=== PATIENT | male | born 1995 | race Caucasian/White ===

== ENCOUNTER 2017-12-23 22:55 | Emergency (ER) | payer SELFPAY ==
[2017-12-23 22:57] VITALS: BP 130/82; PULSE 78; RESP 12; TEMP 37.2; O2SAT 96; BMI 21.5
--- NOTE | 2017-12-23 23:09 | XR_ITS ---
XR hand RT min 3V Ordering Physician: Beck Perales MD Patient Age: 22 years: Male HISTORY: ITS.REASON: pain Right hand pain. Third metacarpal. Previous fracture fifth metacarpal. TECHNIQUE: 3 views right hand. COMPARISON : FINDINGS No acute fracture or findings. Specifically the third metacarpal and third finger, injured right appear intact. Mild deformity at the distal fifth metacarpal reflect old healed fracture here.. Note minor flaring and possibly early degenerative fourth MCP joint Remainder of the fingers and metacarpals carpals visualized unremarkable IMPRESSION: No acute fracture or findings at the right hand. Attention directed towards the third metacarpal and third finger. Unremarkable. Mild Deformity at the fifth metacarpal from old healed fracture noted.
--- NOTE | 2017-12-23 23:12 | HMH.EDEXTP ---
ED Disposition Clinical Impression: Contusion of right hand Qualifiers: Encounter type: initial encounter Qualified Code(s): S60.221A - Contusion of right hand, initial encounter Disposition: Home, Self-Care Condition on Discharge: Good Instructions: DI for Contusion Additional Instructions: Please follow up with one of the orthopedic surgeons listed below, if not better within the next 2-3 days. Referrals: Marcio Valle MD [Staff Physician] - Alexi Masterson MD [Staff Physician] - Time of Disposition: 23:50 - Critical Care Critical Care Time: No Attestation: On 12/23/17, the high probability of a clinically significant, sudden or life threatening deterioration of the following system(s) required my full and direct attention, intervention and personal management. The time I documented below is in addition to time spent performing reported procedures but includes the following listed in this critical care notation. Medical Decision Making - Medical Records Medical records reviewed: Yes: I reviewed the patient's medical records. Vital Signs: 12/23/17 22:57 12/23/17 23:59 Temperature 99.0 F 98.6 F Temperature Source Oral Oral Pulse Rate 72 Pulse Rate [Left Radial] 78 Respiratory Rate 12 16 Blood Pressure 127/81 Blood Pressure [Left Arm] 130/82 Blood Pressure Mean [Left Arm] 98 Blood Pressure Source Automatic Cuff Blood Pressure Source [Left Arm] Automatic Cuff Blood Pressure Position Supine Blood Pressure Position [Left Arm] Sitting 02 Sat by Pulse Oximetry 96 Oxygen Delivery Method Room Air Room Air - Lab Data Lab results reviewed: Yes: I reviewed the patient's lab results. - Radiology Data #1 Image(s): Hand (right ) Image Reviewed: Yes I reviewed the patient's radiology results, Yes I reviewed the patient's radiology image Preliminary Findings: Normal/NAD - Tab Inquiry Pt receiving controlled substance: No - Reevaluation(s) Time: 23:15 Reevaluation #1: medically stable, in no acute distress Extremity Problem HPI - General Chief complaint: Extremity Injury, Upper Stated complaint: AO 12/22/17 Right hand pain Mode of Arrival: Ambulatory Source of Information: Patient Limitations: No Limitations Description of Symptoms (Recalled from ER Triage Doc. by RN): right hand pain, unknown injury, due to etoh - History of Present Illness Complaint: extremity pain (right hand ) Onset (ago): hour(s) (2) Consistency: constant Location: right Severity scale (1-10): 4 Radiation: none Relieving factors: cold therapy, immobilization, elevation, medication (Motrin/Tylennnol) Exacerbating factors: range of motion - Related Data Home Medications Medication Instructions Recorded Confirmed No Known Home Medications [No 12/23/17 12/23/17 Known Home Medications] Allergies Allergy/AdvReac Type Severity Reaction Status Date / Time diphenhydramine Allergy Unknown HYPER Verified 12/23/17 23:08 [From BENADRYL] lorazepam [From ATIVAN] Allergy Unknown HYPER Verified 12/23/17 23:08 [facility] History I have reviewed the patient's past medical history: Yes Amputation: No Fractures: No - Social History Educational Level: Completed High School Alcohol Intake: never Substance Use Type: denies use ROS Obtained: Yes All systems reviewed & no additional complaints - Musculoskeletal Musculoskeletal: Reports joint pain (right hand pain) Physical Exam - General General appearance: alert, in no apparent distress - Neck Neck exam: Present: normal inspection, full ROM, trachea midline. Absent: meningismus, lymphadenopathy - Chest Chest inspection: Present: normal inspection, symmetric chest wall rise. Absent: tenderness - Respiratory Respiratory exam: Present: normal lung sounds bilaterally. Absent: respiratory distress - Cardiovascular Cardiovascular exam: Present: regular rate, normal rhythm. Absent: JVD - Abdominal Exam Abdominal exam: Pres
[2017-12-23 23:59] VITALS: BP 127/81; PULSE 72; RESP 16; TEMP 37; O2SAT 99
== END 2017-12-24 00:06 | disposition home or self-care (01) ==
PROVIDERS: Emergency Provider Emergency Medicine; Family Provider Nurse Practitioner Family
DX: S60.221A Contusion of right hand, initial encounter (principal); F10.10 Alcohol abuse, uncomplicated; F17.210 Nicotine dependence, cigarettes, uncomplicated; Z88.8 Allergy status to other drugs, medicaments and biological substances
CPT/HCPCS: 73130; 99282

== ENCOUNTER 2020-08-03 12:24 | Emergency (ER) | payer MEDICAID, SELFPAY ==
[2020-08-03 13:33] VITALS: BP 123/98; PULSE 64; RESP 20; TEMP 37.1; O2SAT 98; BMI 28.7
--- NOTE | 2020-08-03 13:41 | HMH.EDUTC ---
[facility] [place] Clinical Impression: Encounter for laboratory testing for COVID-19 virus Disposition: Home, Self-Care Condition on Discharge: Good Instructions: Preventing the Spread of Coronavirus Discharge Instructions Additional Instructions: You was tested for today for COVID19 your test result should be back tomorrow or , you may call back in the evening tomorrow or evening to see if your test results are back and the result You was given a handout with instructions for Self Quarantine and Self isolation for while you wait on test results and what to do if they are positive Return if needed No work until negative COVID test Referrals: PCP,No [Primary Care Provider] - As needed Forms: Work/School Release Medical Decision Making - Tab Inquiry Pt receiving controlled substance: Ely Barth was queried for this patient: No Vital Signs: 08/03/20 13:33 Temperature 98.7 F Temperature Source Oral Pulse Rate [Right Brachial] 64 Respiratory Rate 20 Blood Pressure [Right Arm] 123/98 H Blood Pressure Mean [Right Arm] 106 Blood Pressure Source [Right Arm] Automatic Cuff Blood Pressure Position [Right Arm] Sitting 02 Sat by Pulse Oximetry 98 Oxygen Delivery Method Room Air Orders (Tests/Meds): ORDERS Category Date Time Status Covid-19 Nasal PCR Sendout Juan Carlos Stat Lab 08/03/20 12:37 Ordered [facility] [place]PI - General Stated complaint: covid test Time Seen by Provider: 08/03/20 13:41 Mode of Arrival: Ambulatory Source of Information: Patient Limitations: No Limitations Description of Symptoms (Recalled from Triage Doc. by RN): PATIENT NEEDING COVID TEST. EXPOSED TO COWORKER WHO TESTED POSITIVE YESTERDAY, DENIES SYMPTOMS HEENT Symptoms (Recalled from RN notes): No Resp Symptoms (Recalled from RN notes): No Skin Symptoms (Recalled from RN notes): No MS Symptoms (Recalled from RN notes): No Functional Status (Recalled from RN notes): WNL - History of Present Illness Provider Complaint: Patient states that he was recently exposed to another coworker last week that was sick and tested positive for COVID 19 yesterday States that requested he come in and get checked and tested due to exposure denies symptoms - Related Data Home Medications Medication Instructions Recorded Confirmed No Known Home Medications 12/23/17 12/23/17 Allergies Allergy/AdvReac Type Severity Reaction Status Date / Time diphenhydramine Allergy Unknown HYPER Verified 12/23/17 23:08 [From BENADRYL] lorazepam [From ATIVAN] Allergy Unknown HYPER Verified 12/23/17 23:08 - Worker's Comp Is this a Worker's Comp case?: No [facility] History - Hepatitis A Screen Drug use history?: No High risk sexual behaviors?: No History of sexually transmitted infection?: No Currently employed?: No Childcare worker?: No Do you have indoor plumbing?: Yes Do you have electricity?: Yes Attestation statement:: This patient has been screened for Hepatitis A risk factors. I have reviewed the patient's past medical history: Yes Medical History: Denies:: Cancer, Diabetes Mellitus Type 1, Diabetes Mellitus Type 2, MRSA Amputation: No Fractures: No - Social History Smoking Status: Current every day smoker Alcohol Intake: never Alcohol Intake Frequency:: a few times a week Substance Use Type: denies use Occupational Status: other ROS Obtained: Yes All systems reviewed & no additional complaints, Yes Systems reviewed as appropriate & no additional complaints - Constitutional Constitutional: Reports system reviewed and no additional complaints, except as docu, Denies body ache, Denies chills, Denies fever(s) - ENT Ears, Nose, Mouth, and Throat: Reports system reviewed and no additional complaints, except as docu, Denies sinus pain, Denies sinus pressure, Denies sore throat - Cardiovascular Cardiovascular: Reports system reviewed and no additional complaints, except as docu - Respiratory Respiratory: No cough, No dys
[2020-08-03 13:48] VITALS: BP 123/98; PULSE 64; RESP 20; TEMP 37.1; O2SAT 98
[2020-08-04 16:21] LABS: Covid-19 Nasal PCR Sendout Lex Not Detected
== END 2020-08-03 13:50 | disposition home or self-care (01) ==
PROVIDERS: Emergency Provider Nurse Practitioner
DX: Z20.828 Contact with and (suspected) exposure to other viral communicable diseases (principal)
CPT/HCPCS: 99201; U0004

== ENCOUNTER 2020-10-13 09:05 | Emergency (ER) | payer MEDICAID, SELFPAY ==
[2020-10-13 09:25] VITALS: BP 118/70; PULSE 74; RESP 14; TEMP 37.1; O2SAT 99; BMI 21.5
--- NOTE | 2020-10-13 09:39 | HMH.EDUTC ---
[facility] [place] Disposition Clinical Impression: Viral syndrome, Exposure to COVID-19 virus Disposition: Home, Self-Care Condition on Discharge: Good Instructions: Preventing the Spread of Coronavirus Discharge Instructions Additional Instructions: Drink plenty of fluids. Take tylenol or ibuprofen for pain or fever. Take the medications as directed. Follow up with your regular doctor. GO TO THE ER FOR ANY WORSENING SYMPTOMS Prescriptions: Ondansetron [Zofran 4mg ODT] 4 mg PO Q8HP PRN #12 tab.rapdis PRN Reason: Nausea [facility] Status[id number] Azithromycin [Z-Nasir 250mg Tab*] 250 mg PO UD DOSE PK #6 tab Transmission Status: Received by [id number] Referrals: PCP,No [Primary Care Provider] - Time of Disposition: 09:40 Medical Decision Making - Medical Records Medical records reviewed: No: I reviewed the patient's medical records. - Tab Inquiry Pt receiving controlled substance: No Vital Signs: 10/13/20 09:25 10/13/20 10:00 Temperature 98.7 F 98.7 F Temperature Source Oral Oral Pulse Rate 74 Pulse Rate [Radial] 74 Respiratory Rate 14 14 Blood Pressure 118/70 Blood Pressure [Right Arm] 118/70 Blood Pressure Mean [Right Arm] 86 Blood Pressure Source Automatic Cuff Blood Pressure Source [Right Arm] Automatic Cuff Blood Pressure Position Sitting Blood Pressure Position [Right Arm] Sitting 02 Sat by Pulse Oximetry 99 Oxygen Delivery Method Room Air Room Air - Lab Data Lab Results 10/13/20 09:50: Influenza Type A Ag Negative, Influenza Type B Ag Negative Orders (Tests/Meds): ORDERS Category Date Time Status Covid-19 Nasal PCR Sendout Juan Carlos Routine Lab 10/13/20 09:21 Received [facility] [place] HPI - General Stated complaint: fever vomiting Time Seen by Provider: 10/13/20 09:30 Mode of Arrival: Ambulatory Source of Information: Patient Limitations: No Limitations Description of Symptoms (Recalled from Triage Doc. by RN): fever that started yesterday, vomited and diarrhea HEENT Symptoms (Recalled from RN notes): Yes Resp Symptoms (Recalled from RN notes): No Skin Symptoms (Recalled from RN notes): No MS Symptoms (Recalled from RN notes): No Functional Status (Recalled from RN notes): wnl - History of Present Illness Provider Complaint: He states that he has been having chilling, low grade fever, body aches, and n/v since yesterday. - Related Data Previous Rx's Medication Instructions Recorded Azithromycin [Z-Nasir 250mg Tab*] 250 mg PO UD DOSE PK #6 tab 10/13/20 Ondansetron [Zofran 4mg ODT] 4 mg PO Q8HP PRN #12 tab.rapdis 10/13/20 Allergies Allergy/AdvReac Type Severity Reaction Status Date / Time diphenhydramine Allergy Unknown HYPER Verified 12/23/17 23:08 [From BENADRYL] lorazepam [From ATIVAN] Allergy Unknown HYPER Verified 12/23/17 23:08 - Worker's Comp Is this a Worker's Comp case?: No [facility] History - Hepatitis A Screen Drug use history?: No High risk sexual behaviors?: No History of sexually transmitted infection?: No Currently employed?: No Childcare worker?: No Do you have indoor plumbing?: Yes Do you have electricity?: Yes Attestation statement:: This patient has been screened for Hepatitis A risk factors. I have reviewed the patient's past medical history: Yes Medical History: Denies:: Cancer, Diabetes Mellitus Type 1, Diabetes Mellitus Type 2, MRSA Amputation: No Fractures: No - Social History Smoking Status: Current every day smoker Alcohol Intake: never Alcohol Intake Frequency:: a few times a week Substance Use Type: denies use Occupational Status: employed ROS Obtained: Yes All systems reviewed & no additional complaints - Constitutional Constitutional: Reports system reviewed and no additional complaints, except as docu - Eyes Eyes: Reports system reviewed and no additional complaints, except as docu - ENT Ears, Nose, Mouth, and Throat: Reports system reviewed and no
[2020-10-13 09:51] LABS: UTC Influenza A Antigen Negative (Negative); UTC Influenza B Antigen Negative (Negative)
[2020-10-13 10:00] VITALS: BP 118/70; PULSE 74; RESP 14; TEMP 37.1; O2SAT 99
[2020-10-14 12:28] LABS: Covid-19 Nasal PCR Sendout Lex Not Detected
== END 2020-10-13 10:00 | disposition home or self-care (01) ==
PROVIDERS: Emergency Provider Nurse Practitioner Family
DX: Z20.828 Contact with and (suspected) exposure to other viral communicable diseases (principal); B34.9 Viral infection, unspecified; F17.210 Nicotine dependence, cigarettes, uncomplicated
CPT/HCPCS: 87804; 99201; U0004

== ENCOUNTER 2020-11-16 11:17 | Emergency (ER) | payer BC, SELFPAY ==
[2020-11-16 11:18] VITALS: BP 115/50; PULSE 50; RESP 14; TEMP 36.4; O2SAT 99; BMI 22.9
--- NOTE | 2020-11-16 12:08 | HMH.EDUTC ---
[facility] [place] Disposition Clinical Impression: Exposure to COVID-19 virus Disposition: Home, Self-Care Condition on Discharge: Good Instructions: DI for COVID-19 (Suspected or Confirmed ), Preventing the Spread of Coronavirus Discharge Instructions Additional Instructions: Drink plenty of fluids. Take tylenol for pain or fever. Return if you begin to have difficulty breathing. Follow up with your regular doctor. GO TO THE ER FOR ANY WORSENING SYMPTOMS Referrals: PCP,No [Primary Care Provider] - Time of Disposition: 12:10 Medical Decision Making - Medical Records Medical records reviewed: No: I reviewed the patient's medical records. - Tab Inquiry Pt receiving controlled substance: No Vital Signs: 11/16/20 11:18 11/16/20 12:18 Temperature 97.6 F 97.6 F Temperature Source Oral Pulse Rate 50 L Pulse Rate [Right] 50 L Respiratory Rate 14 14 Blood Pressure 115/50 L Blood Pressure [Right Arm] 115/50 L Blood Pressure Mean [Right Arm] 71 02 Sat by Pulse Oximetry 99 Orders (Tests/Meds): ORDERS Category Date Time Status Covid-19 Nasal PCR Sendout P&C Routine Lab 11/16/20 11:50 Received [facility] [place] HPI - General Stated complaint: exposure Time Seen by Provider: 11/16/20 12:08 Description of Symptoms (Recalled from Triage Doc. by RN): pt request COVID test HEENT Symptoms (Recalled from RN notes): No Resp Symptoms (Recalled from RN notes): No Skin Symptoms (Recalled from RN notes): No MS Symptoms (Recalled from RN notes): No Functional Status (Recalled from RN notes): wnl - History of Present Illness Provider Complaint: His son currently has covid-19. He denies any symptoms so far. He needs a test because his work is requiring it. - Related Data Previous Rx's Medication Instructions Recorded Azithromycin [Z-Nasir 250mg Tab*] 250 mg PO UD DOSE PK #6 tab 10/13/20 Ondansetron [Zofran 4mg ODT] 4 mg PO Q8HP PRN #12 tab.rapdis 10/13/20 Allergies Allergy/AdvReac Type Severity Reaction Status Date / Time diphenhydramine Allergy Unknown HYPER Verified 11/16/20 12:00 [From BENADRYL] lorazepam [From ATIVAN] Allergy Unknown HYPER Verified 11/16/20 12:00 - Worker's Comp Is this a Worker's Comp case?: No Is this an [facility] Worker's Comp?: No Is this a [facility] Worker's Comp?: No H History - Hepatitis A Screen Drug use history?: No High risk sexual behaviors?: No History of sexually transmitted infection?: No Currently employed?: No Childcare worker?: No Do you have indoor plumbing?: Yes Do you have electricity?: Yes Attestation statement:: This patient has been screened for Hepatitis A risk factors. I have reviewed the patient's past medical history: Yes Medical History: Denies:: Cancer, Diabetes Mellitus Type 1, Diabetes Mellitus Type 2, MRSA Amputation: No Fractures: No - Social History Smoking Status: Current every day smoker Alcohol Intake: never Alcohol Intake Frequency:: a few times a week Substance Use Type: denies use Occupational Status: employed ROS Obtained: Yes All systems reviewed & no additional complaints - Constitutional Constitutional: Reports system reviewed and no additional complaints, except as docu - Eyes Eyes: Reports system reviewed and no additional complaints, except as docu - ENT Ears, Nose, Mouth, and Throat: Reports system reviewed and no additional complaints, except as docu - Cardiovascular Cardiovascular: Reports system reviewed and no additional complaints, except as docu - Respiratory Respiratory: Reports system reviewed and no additional complaints, except as docu - Gastrointestinal Gastrointestingal: Reports: system reviewed and no additional complaints, except as docu Physical Exam - General General appearance: alert, in no apparent distress - Head Head exam: atraumatic, normocephalic, normal inspection - Eye Eye exam: Present: normal appearance, PERRL, EOMI - ENT ENT exam: Present: normal exa
[2020-11-16 12:18] VITALS: BP 115/50; PULSE 50; RESP 14; TEMP 36.4; O2SAT 99
[2020-11-17 09:07] LABS: Covid-19 Nasal PCR Sendout P&C NEGATIVE
== END 2020-11-16 12:20 | disposition home or self-care (01) ==
PROVIDERS: Emergency Provider Nurse Practitioner Family
DX: Z20.822 Contact with and (suspected) exposure to COVID-19 (principal); F17.210 Nicotine dependence, cigarettes, uncomplicated
CPT/HCPCS: 99202; G0463; U0004

== ENCOUNTER 2022-10-08 10:41 | Emergency (ER) | payer BC, SELFPAY ==
[2022-10-08 10:46] VITALS: BP 138/87; PULSE 111; RESP 18; TEMP 36.7; O2SAT 99
--- NOTE | 2022-10-08 11:31 | XR_ITS ---
PROCEDURE INFORMATION: Exam: XR Left Ankle Exam date and time: 10/08/2022 11:26 AM Age: 26 years old Clinical indication: Injury or trauma; Other: Cut; Laceration; Ankle; Left; Foreign body involvement not specified; Additional info: Injury, pain TECHNIQUE: Imaging protocol: Radiologic exam of the Left ankle. Views: 3 or more views. COMPARISON: No relevant prior studies available. FINDINGS: Bones/joints: No acute fracture. The ankle mortise is intact. No significant degenerative joint disease. Soft tissues: Mild soft tissue swelling overlying the medial malleolus. IMPRESSION: No acute fracture. The ankle mortise is intact. Mild soft tissue swelling overlying the medial malleolus.
--- NOTE | 2022-10-08 11:31 | PC.NURSE ---
pt to xray
--- NOTE | 2022-10-08 11:35 | HMH.EDEXTP ---
Discharge Plan Disposition Patient Disposition: Home, Self-Care Condition: Good Prescriptions Prescriptions: New cephalexin 500 mg tablet 500 mg PO BID 7 Days Qty: 14 0RF No Action azithromycin 250 MG tablet 250 mg PO UD DOSE PK Qty: 6 0RF Rx Instructions: Take two (2) tablets today, then one (1) tablet days #2 thru #5 ondansetron 4 MG tablet,disintegrating 4 mg PO Q8HP PRN (Reason: Nausea) Qty: 12 0RF Referrals Follow up/Referrals: Provider,Referral, [Primary Care Provider] - See instructions Activity Restrictions/Add. Instructions Additional Instructions/Restrictions: Please follow up with your primary care physician in 1-2 days for further management. Please take antibiotic as prescribed given concern for local infection. Please keep wound clean and dry. Please return if any worsening swelling, purulent white drainage, inability to bear weight or any other concerns. Clinical Impressions Clinical Impression: Ankle sprain and strain Instructions Patient Instructions: Ankle Sprain Print Language Print Language: Yoruba Discharge ED Provider: Corazon Rae Extremity Problem HPI General Chief complaint: Extremity Injury, Lower Stated complaint: no accident, left ankles pain Time Seen by Provider: 10/08/22 12:00 Mode of Arrival: Ambulatory Source of Information: Patient Limitations: No Limitations Description of Symptoms (Recalled from ER Triage Doc. by RN): pt c/o L ankle and foot pain, pt reports he kicked something yesterday and his foot went through that object and he hit his foot on his deep freezer. Bruising noted around L ankle. Abrasion noted, no bleeding noted. History of Present Illness HPI Narrative: Mr. Santamaria is a 26 yo male presenting to the ED for (L) ankle pain. Patient reports he kicked a freezer yesterday in an episode of anger. Patient reports significant swelling and pain since yesterday. Patient ambulatory prior ot arrival. No sensriomotor changes. No significant bleeding. Superficial abrasion on medial ankle w/ surrounding eyrthema. Complaint: extremity pain and extremity swelling Onset (ago): day(s) Consistency: constant Location: left Severity scale (1-10): 6 Quality: constant Radiation: none Relieving factors: nothing Exacerbating factors: nothing Associated symptoms: denies other symptoms Related Data Previous Rx's Medication Instructions Recorded azithromycin 250 mg tablet 250 mg PO UD DOSE PK #6 tabs 10/13/20 ondansetron 4 mg disintegrating 4 mg PO Q8HP PRN Nausea ##12 10/13/20 tablet cephalexin 500 mg tablet 500 mg PO BID 7 days #14 tabs 10/08/22 Allergies Allergy/AdvReac Type Severity Reaction Status Date / Time diphenhydramine Allergy Unknown HYPER Verified 11/16/20 12:00 [From BENADRYL] lorazepam [From ATIVAN] Allergy Unknown HYPER Verified 11/16/20 12:00 [facility] Disclaimer: The information contained in this section may have been updated after the patient was seen, as this information can be updated by other users. Social History Smoking Status: Current every day smoker alcohol intake: never substance use type: denies use current occupational status: employed Travel in the last 8 weeks: None ROS Obtained: Yes All systems reviewed & no additional complaints except as documented Physical Exam General General appearance: alert and in no apparent distress Head Head exam: atraumatic and normal inspection Eye Eye exam: Present normal appearance and EOMI ENT ENT exam: Present normal exam and mucous membranes moist Neck Neck exam: Present normal inspection and full ROM Chest Chest inspection: Present normal inspection and symmetric chest wall rise Respiratory Respiratory exam: Present normal lung sounds bilaterally Cardiovascular Cardiovascular exam: Present regular rate and normal rhythm Abdominal Exam Abdominal exam: Present soft and normal bowel sound
[2022-10-08 12:15] VITALS: BP 138/87; PULSE 111; RESP 18; TEMP 36.7; O2SAT 99
== END 2022-10-08 12:15 | disposition home or self-care (01) ==
PROVIDERS: Emergency Provider Student in an Organized Health Care Education/Training Program
DX: S93.402A Sprain of unspecified ligament of left ankle, initial encounter (principal); W22.8XXA Striking against or struck by other objects, initial encounter
CPT/HCPCS: 73610